=== PATIENT | male | born 1965 | race Caucasian/White ===

== ENCOUNTER 2024-12-27 12:13 | Emergency (ER) | payer MEDICAID, SELFPAY ==
[2024-12-27 12:20] VITALS: BP 132/79; PULSE 95; TEMP 36.8; O2SAT 97; BMI 25.1
--- NOTE | 2024-12-27 12:35 | PC.NURSE ---
pt has red raised rash over entire body, pt denies use of new medications, denies new lotions and detergents, pt does not take any medications, he was given Benadryl by staff at [facility] prior to arrival here today
[2024-12-27] MEDS: PREDNISONE 20 MG TABLET 40 MG PO (12:55)
[2024-12-27] MEDS: ONDANSETRON PF 4 MG/2 ML VIAL IV (12:55)
[2024-12-27] MEDS: FAMOTIDINE/PF 20 MG/2 ML VIAL IV (12:55)
[2024-12-27 13:24] VITALS: BP 125/90; PULSE 95; O2SAT 97
--- NOTE | 2024-12-27 13:36 | ED.SKABFB1 ---
HPI - Skin/Abscess/Foreign Bdy General Chief complaint: Skin/Abscess/Foreign Body Stated complaint: POSSIBLE ALLERGIC REACTION Time Seen by Provider: 12/27/24 12:24 Source: patient Mode of arrival: walk-in Limitations: no limitations History of Present Illness HPI narrative: The patient is coming to us from the [facility] detox facility after he had some rash developed over the last few hours, the patient has been there for the last 20 days and the last use of any cocaine was more than that The patient denies any exposure to any new drug he was provided with some Benadryl before arrival The patient denies any exposure to any new drugs or any new pets or any new environmental changes or any food but he mentioned that he is not sure if the started using new detergent The rash is itchy and is all over the skin in the upper and lower extremity and Abdomen The patient has no fever or any other symptoms of difficulty breathing or any other concerns Related Data Previous Rx's ?Medication ?Instructions ?Recorded diphenhydramine HCl 25 mg capsule 25 mg PO TID PRN allergic reaction 12/27/24 (Benadryl) #10 caps famotidine 20 mg tablet (Pepcid) 20 mg PO BID #10 tabs 12/27/24 prednisone 20 mg tablet 40 mg (2 x 20 mg) PO DAILY 5 days 12/27/24 #10 tabs Allergies Allergy/AdvReac Type Severity Reaction Status Date / Time No Known Drug Allergies Allergy Verified 12/27/24 12:19 Review of Systems ROS Status of ROS 10 or more systems reviewed and unremarkable except as noted in history and below PFSH PFSH Social History Little interest or pleasure in doing things: not at all Feeling down, depressed, or hopeless: not at all Exam Narrative Exam Narrative: Nurses notes and vital signs reviewed and patient is not hypoxic. General: Well-appearing and in no apparent distress. Skin: Macular like rash that is red mostly large with a scratch kristian on the medial aspect of both thighs as well as on multiple places on the forearm bilaterally as well as the lower legs No rash. Head: Normocephalic, atraumatic. Neck: Supple, non-tender. Eye: Pupils are equal, round and EOMI. No scleral icterus. Ears, Nose, Mouth, and Throat: TM are clear, no nasal mucosal hypertrophy. Oral mucosa is moist, no posterior oropharynx erythema, uvula is mid-line Cardiovascular: Regular Rate and Rhythm without murmur, gallop or rub. Respiratory: No accessory muscle use or respiratory distress. Lungs are clear to auscultation, no wheezing, rales or rhonchi Chest Wall: no tenderness Back: No midline thoracic or lumbar vertebral tenderness. No CVA tenderness Musculoskeletal: normal ROM, no calf or popliteal tenderness, no lower extremity edema/swelling GI: Abdomen is soft, non-distended. Normal bowel sounds. No masses appreciated. No tenderness to palpation. No rebound, guarding, or rigidity noted. Neurological: A&O x4. No cranial nerve dysfunction observed. No truncal ataxia. Moves all extremities. Sensation intact. Psychiatric: Cooperative and interactive. Normal mood and affect. Constitutional Vital Signs, click to edit/add: Last Vital Signs Temp 98.2 F 12/27/24 12:20 Pulse 95 H 12/27/24 13:24 Resp 16 12/27/24 13:24 BP 125/90 12/27/24 13:24 Pulse Ox 97 12/27/24 13:24 O2 Del Method Room Air 12/27/24 13:24 Course Vital Signs Vital signs: Vital Signs Temperature 98.2 F 12/27/24 12:20 Pulse Rate 95 H 12/27/24 12:20 Respiratory Rate 18 12/27/24 12:20 Blood Pressure 132/79 12/27/24 12:20 Pulse Oximetry 97 12/27/24 12:20 Oxygen Delivery Method Room Air 12/27/24 12:20 Temperature 98.2 F 12/27/24 12:20 Pulse Rate 95 H 12/27/24 13:24 Respiratory Rate 16 12/27/24 13:24 Blood Pressure 125/90 12/27/24 13:24 Pulse Oximetry 97 12/27/24 13:24 Oxygen Delivery Method Room Air 12/27/24 13:24 MDM - Skin/Abscess/Foreign Bdy MDM Narrative Medical decision making narrative: The patient urticaria and rash could be secondary to an exposure to any new allergen The patient does not have any alarming symptoms of allergy Patient was started on prednisone as well as Pepcid in addition to Benadryl to be continued for the next 3 to 5 days The patient to monitor his symptoms in case of any new symptoms he is to come back to the ER The patient is to follow up with primary care physician in next 2-3 days or to return to the emergency department should any of the signs or symptoms worsen or new symptoms develop. The patient agrees with the following Diagnosis and Treatment plan and the patient will be discharged home. Discharge Plan Discharge Chief Complaint: Skin/Abscess/Foreign Body Clinical Impression: Urticaria Patient Disposition: Home, Self-Care Time of Disposition Decision: 12:31 Condition: Good Prescriptions / Home Meds: New famotidine [Pepcid] 20 mg tablet 20 mg PO BID Qty: 10 0RF prednisone 20 mg tablet 40 mg PO DAILY 5 Days Qty: 10 0RF diphenhydramine HCl [Benadryl] 25 mg capsule 25 mg PO TID PRN (Reason: allergic reaction) Qty: 10 0RF Print Language: Romanian Instructions: Urticaria (ED), Acute Rash (ED) Referrals: Physician,Non-Staff, MD [Primary Care Provider] - 1 week Discharge Date/Time: 12/27/24 13:29
== END 2024-12-27 13:29 | disposition home or self-care (01) ==
PROVIDERS: Emergency Provider Emergency Medicine
DX: L50.9 Urticaria, unspecified (principal)
CPT/HCPCS: 99284; J2405; J3490; J7512